=== PATIENT | male | born 1960 | race Two or more races ===

== ENCOUNTER 2021-09-23 12:11 | Inpatient (IN) | payer MEDICAID ==
[~2021-09-23] VITALS: Ht 170.2 cm; Wt 99.8 kg
[2021-09-23 12:34] LABS: Basophils # (auto) 0.1 10 ^3/uL (0-0.2); Basophils % (auto) 0.8 % (0.0-2.0); Eosinophils # (auto) 0.6 10 ^3/uL (0-0.8); Eosinophils % (auto) 6.9 % (0.0-7.0); Hematocrit 44.7 % (41.0-53.0); Hemoglobin 15.2 g/dL (13.5-17.5); Lymphocytes # (auto) 2.8 10 ^3/uL (0.4-5.4); Mean Corpuscular Hemoglobin 29.9 pg (28.0-32.0); Mean Corpuscular Volume 87.9 fL (80.0-100.0); Monocytes # (auto) 0.9 10 ^3/uL (0-1.3); Monocytes % (auto) 9.6 % (0.0-12.0); Neutrophils # (auto) 4.7 10 ^3/uL (1.6-8.6); Neutrophils % (auto) 51.7 % (37.0-80.0); Nucleated Red Blood Cells % 0.1 %; Red Blood Cells 5.09 10^6/uL (4.5-5.90); Red Cell Distribution Width 13.3 % (11.8-14.3); White Blood Cell 9.2 10^3/uL (4.4-10.8)
[2021-09-23 12:50] LABS: BUN/Creatinine Ratio 16.7; Calcium 9.2 mg/dL (8.5-10.1); Magnesium 2.2 mg/dL (1.6-2.6)
[2021-09-23 12:53] LABS: Bilirubin, Total 1.5 mg/dL (0.2-1.0); Total Protein 7.7 g/dL (6.4-8.2)
[2021-09-23 14:59] LABS: Urine Bacteria NONE SEEN /hpf (None Seen); Urine Blood Negative /uL (Negative); Urine Specific Gravity 1.016 (1.001-1.035); Urine WBC <1 /hpf (0 - 3)
[2021-09-23 15:33] LABS: Partial Thromboplastin Time 25.4 sec (23.6-33.0)
[2021-09-23 15:34] LABS: INR 1.03 (0.9-1.15)
[2021-09-23] MEDS ORDERED: ONDANSETRON HCL 4 MG/2 ML VIAL IV PRN (18:00)
[2021-09-23] MEDS ORDERED: MORPHINE SULFATE INJ 2 MG/ml SYRG IV PRN ×2 (18:00)
[2021-09-23] MEDS ORDERED: HYDROcodone-ACET 5/325MG TAB PO PRN (18:00)
[2021-09-23] MEDS ORDERED: NITROGLYCERIN 0.4 MG SL TAB SL PRN (18:00)
[2021-09-23] MEDS ORDERED: ACETAMINOPHEN 325 MG TAB PO PRN (18:00)
[2021-09-23] MEDS ORDERED: ATORVASTATIN 20 MG TAB PO SCH (22:00)
[2021-09-24] VITALS (7 sets, daily range): BP systolic 116–137; BP diastolic 61–75
[2021-09-24] MEDS ORDERED: ENOXAPARIN SOD 40 MG/0.4 ML SYRINGE SC SCH (10:00)
[2021-09-24] MEDS ORDERED: ASPirin 81 mg TAB PO SCH (10:00)
[2021-09-24] MEDS ORDERED: IOHEXOL 350 MG/ML 100ML IJ ONE (12:30)
[2021-09-24] MEDS ORDERED: LIDOCAINE 2%HCL (LOCAL ANESTH.) INJ 10ml MDV ONE (12:30)
[2021-09-24] MEDS ORDERED: ANGIOMAX 250 MG VIAL IV ONE (12:33)
[2021-09-24] MEDS ORDERED: fentaNYL CITRATE 100 MCG/2 ML VL ONE (12:33)
[2021-09-24] MEDS ORDERED: SODIUM CHL 0.9% 50 ML ONE (12:34)
[2021-09-24] MEDS ORDERED: MIDAZOLAM HCL 2MG/2ML 2ml VIAL (1mg/ml) ONE (12:34)
[2021-09-24] MEDS ORDERED: ATROPINE SULF 1 MG/10ml SYR ONE (13:06)
[2021-09-24] MEDS ORDERED: CLOPIDOGREL 300 MG TAB ONE (13:09)
[2021-09-24] MEDS ORDERED: TICAGRELOR 90 MG TAB ONE (13:11)
[2021-09-24] MEDS ORDERED: TICAGRELOR 90 MG TAB PO SCH (22:00)
== END 2021-09-24 21:13 | disposition home or self-care (01) | DRG 175 ==
LOC: ER 12:11 → TELE 18:00 → TELE-WESTW 22:10
PROVIDERS: ADMIT Internal Medicine; ATTEND Internal Medicine
PROC: 027034Z Dilation of Coronary Artery, One Artery with Drug-eluting Intraluminal Device, Percutaneous Approach (ICD-10-PCS; principal; 2021-09-24)
PROC: B2111ZZ Fluoroscopy of Multiple Coronary Arteries using Low Osmolar Contrast (ICD-10-PCS; 2021-09-24)
PROC: B2151ZZ Fluoroscopy of Left Heart using Low Osmolar Contrast (ICD-10-PCS; 2021-09-24)
DX: I25.119 Atherosclerotic heart disease of native coronary artery with unspecified angina pectoris (principal); Q25.0 Patent ductus arteriosus; E05.80 Other thyrotoxicosis without thyrotoxic crisis or storm; E78.5 Hyperlipidemia, unspecified; Z20.822 Contact with and (suspected) exposure to COVID-19; I10 Essential (primary) hypertension; Z82.49 Family history of ischemic heart disease and other diseases of the circulatory system; Z98.61 Coronary angioplasty status
CPT/HCPCS: 36415; 71046; 80053; 81001; 83735; 84443; 84484; 85025; 85379; 85610; 85730; 86850; 86900; 86901; 92928; 93005; 93306; 93454; 99152; 99153; C1874; C1887; G0378; J2001; J2250

== ENCOUNTER → 2021-11-27 | Outpatient (CLI) | payer MEDICAID | END | disposition home or self-care (01) | LOC: Rad HDHVI 14:46 | PROVIDERS: ATTEND Internal Medicine Cardiovascular Disease | DX: R07.89 Other chest pain (principal); E78.00 Pure hypercholesterolemia, unspecified | CPT/HCPCS: 93306 ==